=== PATIENT | female | born 1965 | race Two or more races ===

== ENCOUNTER 2016-10-13 13:07 | Emergency (ER) | payer OTHER ==
[~2016-10-13] VITALS: Ht 165.1 cm; Wt 54.4 kg
[2016-10-13] MEDS ORDERED: IBUPROFEN 600 MG TABLET PO ONE ×2 (14:50→15:00)
[2016-10-13 15:08] VITALS: BP 152/97
== END 2016-10-13 15:09 | disposition home or self-care (01) ==
LOC: ER 13:09
DX: M54.9 Dorsalgia, unspecified (principal); R51 Headache; V43.52XA Car driver injured in collision with other type car in traffic accident, initial encounter; Y93.89 Activity, other specified; Y92.89 Other specified places as the place of occurrence of the external cause; Y99.9 Unspecified external cause status
CPT/HCPCS: 70450; 72125; 99284; A4606; Z7610